=== PATIENT | male | born 1930 | race Caucasian/White ===

== ENCOUNTER 2017-03-29 01:40 | Emergency (ER) | payer MEDICARE, OTHER ==
[2015-11-27 10:48] VITALS: BMI 19.2
[~2017-03-29 01:40] MED LIST: ACETAMINOPHEN325 MG PO; LANOXIN250 MCG PO; LEVAQUIN500 MG PO; METOPROLOL TAR100 M1 PO; XARELTO20 MG PO
[2017-03-29 02:18] LABS: APPEARANCE CLEAR (CLEAR); BILIRUBIN NEGATIVE (NEGATIVE); COLOR YELLOW (YELLOW); GLUCOSE NEGATIVE (NEGATIVE); KETONE NEGATIVE (NEGATIVE); NITRITE NEGATIVE (NEGATIVE); PROTEIN NEGATIVE (NEGATIVE); UROBILINOGEN NORMAL (NORMAL)
[2017-03-29 02:19] LABS: BACTERIA FEW /hpf (NONE SEEN); EPITHELIAL CELLS 0-5 /hpf (0-5); RED CELLS - URINE 0-5 /hpf (0-5); WHITE CELLS - URINE 0-5 /hpf (0-5)
== END 2017-03-29 03:30 | disposition home or self-care (01) ==
LOC: D.ER 01:40
PROVIDERS: Family Medicine
DX: R39.11 Hesitancy of micturition (principal); K21.9 Gastro-esophageal reflux disease without esophagitis

== ENCOUNTER → 2020-03-16 13:10 | Outpatient (CLI) | payer MEDICARE, OTHER ==
[2015-11-27 10:48] VITALS: BMI 19.2
== END | disposition home or self-care (01) ==
LOC: D.HCCECHO 03-12 11:30
PROVIDERS: ATTEND Internal Medicine Cardiovascular Disease
DX: I34.0 Nonrheumatic mitral (valve) insufficiency (principal)